=== PATIENT | female | born 1955 | race African-American/Black ===

== ENCOUNTER 2017-04-01 20:14 | Emergency (ER) | payer OTHER ==
[~2017-04-01] VITALS: Ht 160 cm; Wt 68.0 kg
[2017-04-01] MEDS ORDERED: COD LIVER OIL1 EAC4 (20:25)
[2017-04-01] MEDS ORDERED: VITAMIN D2000 UNIT PO (20:25)
[2017-04-01] MEDS ORDERED: NAPROXEN375 MG PO (20:53)
[2017-04-01] MEDS ORDERED: TRAMADOL 50 MG50 MG PO (20:53)
[2017-04-01 21:46] VITALS: BP 169/81
== END 2017-04-01 21:49 | disposition home or self-care (01) ==
LOC: ER 20:14
DX: S52.502A Unspecified fracture of the lower end of left radius, initial encounter for closed fracture (principal); S52.602A Unspecified fracture of lower end of left ulna, initial encounter for closed fracture; E78.00 Pure hypercholesterolemia, unspecified; Z90.710 Acquired absence of both cervix and uterus; W01.0XXA Fall on same level from slipping, tripping and stumbling without subsequent striking against object, initial encounter; Y93.02 Activity, running; Y92.89 Other specified places as the place of occurrence of the external cause; Y99.8 Other external cause status